=== PATIENT | female | born 1995 | race Two or more races ===

== ENCOUNTER 2024-12-19 12:56 | Observation (INO) | payer OTHER, SELFPAY ==
[2024-12-19] VITALS (7 sets, daily range): BP systolic 90–112; BP diastolic 58–76; PULSE 68–89; RESP 11–20; TEMP 36–36.8; O2SAT 88–100; BMI 33.3
--- NOTE | 2024-12-19 | ECG_ITS ---
Test Reason : cp Blood Pressure : */* mmHG Vent. Rate : 76 BPM Atrial Rate : 76 BPM P-R Int : 160 ms QRS Dur : 94 ms QT Int : 362 ms P-R-T Axes : 34 25 -53 degrees QTcB Int : 407 ms Normal sinus rhythm Nonspecific T wave abnormality Abnormal ECG When compared with ECG of 19-Dec-2024 13:57, No significant change was found Referred By: Lyndsey Song Electronically Signed By: ROSALES HIDALGO MD
--- NOTE | ~2024-12-19 | CT_ITS ---
EXAMINATION: CT CHEST WITH CONTRAST CLINICAL INFORMATION: Fall, hypoxia COMPARISON: None available. TECHNIQUE: Multidetector volumetric CT imaging of the chest was obtained after the administration of 50 mL of Omnipaque 350 intravenous contrast without immediate adverse reactions. Axial MIP volume rendering provided. Sagittal and coronal reformatted images were obtained. This CT examination was performed using dose optimization techniques as appropriate, variously including the following: *Automated exposure control *Adjustment of mA and/or kV according to patient size (this includes techniques or standardized protocols for targeted exams where dose is matched to indication/reason for exam; i.e. extremities or head) *Use of iterative reconstruction technique CLINICAL INFORMATION: Fall, hypoxia COMPARISON: None available. TECHNIQUE: Multiple axial images were obtained through the chest after the administration of 85 mL of Omnipaque 350 intravenous contrast. Extensive vascular post-processing including two-dimensional and three-dimensional reformatted images were created and reviewed on an independent workstation. This CT examination was performed using dose optimization techniques as appropriate, variously including the following: *Automated exposure control *Adjustment of mA and/or kV according to patient size (this includes techniques or standardized protocols for targeted exams where dose is matched to indication/reason for exam; i.e. extremities or head) *Use of iterative reconstruction technique DLP: 2656 mGY*cm FINDINGS: VASCULAR: Pulmonary vessels are mildly prominent. LUNGS AND PLEURA: Mild patchy groundglass densities are diffusely present with linear bands of airspace density in the right apex. There is no pleural thickening or pleural effusion. MEDIASTINUM: Unremarkable Borderline cardiac enlargement is present. CORONARY ARTERY CALCIFICATION: Nonvisualized CHEST WALL/AXILLA: No adenopathy. UPPER ABDOMEN: CT scan abdomen and pelvis CT. BONES: Unremarkable CT/CT chest w IV con IMPRESSION: Suspected mild pulmonary vascular congestion. Electronically signed by: Mando Jackson MD 12/19/2024 04:18 PM EDT
--- NOTE | ~2024-12-19 | CT_ITS ---
EXAMINATION: CT ABDOMEN AND PELVIS WITH CONTRAST CLINICAL INFORMATION: Right lower abdominal pain, fall COMPARISON: None available. TECHNIQUE: Multidetector volumetric images were obtained from the superior aspect of the liver through the pubic symphysis following administration 85 mL of Omnipaque 350 intravenous contrast. Sagittal and coronal reformatted images were obtained on the technologist's workstation. Oral contrast: No This CT examination was performed using dose optimization techniques as appropriate, variously including the following: *Automated exposure control *Adjustment of mA and/or kV according to patient size (this includes techniques or standardized protocols for targeted exams where dose is matched to indication/reason for exam; i.e. extremities or head) *Use of iterative reconstruction technique DLP: 2656 mGY*cm FINDINGS: LUNG BASES: See same-day chest CT LIVER, GALLBLADDER, AND BILIARY TREE: Mild diffuse fatty changes are present. There is mild focal sparing around the gallbladder fossa The gallbladder is unremarkable with no evidence of radiopaque gallstones, gallbladder wall thickening, or obvious pericholecystic inflammatory changes. PANCREAS: Unremarkable. SPLEEN: Unremarkable. ADRENAL GLANDS: Unremarkable. KIDNEYS AND URETERS: 3 x 7 mm focal calcification is present in the mid right kidney. There is no hydronephrosis BLADDER: Unremarkable. GASTROINTESTINAL TRACT: The small and large bowel are unremarkable. The appendix is unremarkable. ABDOMINAL WALL: 3 cm umbilical hernia contains mixed density adipose tissue with fat stranding.. There is a left supraumbilical hernia containing adipose tissue. The hernia sac measured 1 x 3 cm. It extends inferiorly through the dehiscence in the linea alba 6 mm diameter. There is a generator in the right gluteal subcutaneous layer with wire extending through the right S3 neural foramen and right intrapelvic stimulator. LYMPH NODES: Normal. VASCULAR: Unremarkable. PELVIC VISCERA: There is an IUD in the upper uterine canal. Uterus and adnexa are otherwise unremarkable. OSSEOUS STRUCTURES: Unremarkable. CT/CT abdomen pelvis w IV con IMPRESSION: 3 cm umbilical hernia contains mixed density adipose tissue raising question that it is symptomatic. There is also a left supraumbilical hernia containing adipose tissue without fat stranding. 3x7 mm right renal calcification, possibly a stone. Fatty liver IUD. Sacral neurostimulator. Fleischner guidelines were followed. Electronically signed by: Mando Jackson MD 12/19/2024 04:28 PM EDT RP
--- NOTE | ~2024-12-19 | CT_ITS ---
EXAMINATION: CT HEAD WITHOUT CONTRAST CLINICAL INFORMATION: Head trauma, altered mental status COMPARISON: None available. TECHNIQUE: Contiguous axial imaging was performed from the skull base to vertex without intravenous administration of contrast. This CT examination was performed using dose optimization techniques as appropriate, variously including the following: *Automated exposure control *Adjustment of mA and/or kV according to patient size (this includes techniques or standardized protocols for targeted exams where dose is matched to indication/reason for exam; i.e. extremities or head) *Use of iterative reconstruction technique DLP: 2656 mGY*cm FINDINGS: There is no acute ischemic change. There is no intracranial hemorrhage. There is no mass-effect or midline shift. Basal cisterns and ventricles are within normal limits for age/cerebral volume. Orbits are symmetrical and unremarkable. Paranasal sinuses and mastoid air cells are pneumatized. There are no bony abnormalities. CT/CT head/brain wo IV con IMPRESSION: No acute intracranial abnormality. Electronically signed by: Mando Jackson MD 12/19/2024 04:30 PM EDT
--- NOTE | ~2024-12-19 | XR_ITS ---
EXAMINATION: XR KNEE, RIGHT CLINICAL INFORMATION: anterior knee injury COMPARISON: None available. TECHNIQUE: AP and lateral view of the right knee. FINDINGS: Joint spaces are preserved. There is no joint effusion. The Insall-Salvati ratio measured 1.6 consistent with patella bear. XR/XR knee RT 2V IMPRESSION: Patella bear. This is associated with patellofemoral tracking and patellar tendon-lateral femoral condyle friction syndrome. Electronically signed by: Mando Jackson MD 12/19/2024 02:02 PM EDT
--- NOTE | 2024-12-19 13:19 | ECG_ITS ---
Test Reason : FALL Blood Pressure : */* mmHG Vent. Rate : 82 BPM Atrial Rate : 82 BPM P-R Int : 156 ms QRS Dur : 94 ms QT Int : 372 ms P-R-T Axes : 30 21 228 degrees QTcB Int : 434 ms Normal sinus rhythm Nonspecific T wave abnormality Abnormal ECG No previous ECGs available Referred By: Ian Azar Electronically Signed By: ROSALES HIDALGO MD
--- NOTE | 2024-12-19 13:34 | ED.FALL ---
HPI - Fall General Chief Complaint: Fall Stated Complaint: FALL Time Seen by Provider: 12/19/24 13:12 History of Present Illness ED Provider: Ian Azar MD HPI Narrative: 29-year-old female the patient herself offers limited history due to clinical condition.. Paper provided by [facility] with the patient is sent from is also limited saying that she had ?unwitnessed fall ?. The patient herself is sleepy but arousable she does say she ?slipped on water?. She complains of right lower abdominal pain. And injury to the right knee. Related Data Home Medications ?Medication ?Instructions ?Recorded ?Confirmed acetaminophen 325 mg tablet 650 mg PO Q4H PRN Mild Pain (Scale 12/19/24 12/19/24 Score 1-4) albuterol sulfate 90 mcg/actuation 2 puff inhalation Q4H PRN 12/19/24 12/19/24 aerosol inhaler Shortness Of Breath benzocaine 6 mg-menthol 10 mg 1 asher mucous membrane Q2H PRN Sore 12/19/24 12/19/24 lozenges Throat benztropine 1 mg tablet 1 mg PO BID 12/19/24 12/19/24 calcium carbonate 500 mg PO Q4H PRN Heartburn 12/19/24 12/19/24 clonidine HCl 0.1 mg tablet 0.1 mg PO TID PRN Anxiety 12/19/24 12/19/24 dicyclomine 10 mg capsule 10 mg PO TIDAC 12/19/24 12/19/24 divalproex 250 mg tablet,delayed 750 mg PO BID 12/19/24 12/19/24 release docusate sodium 100 mg capsule 100 mg PO BID PRN Constipation 12/19/24 12/19/24 fluticasone furoate 100 1 inh inhalation DAILY 12/19/24 12/19/24 mcg-vilanterol 25 mcg/dose inhalation powder (Breo Ellipta) fluticasone propionate 50 1 spray intranasal DAILY 12/19/24 12/19/24 mcg/actuation nasal spray,suspension gabapentin 300 mg capsule 600 mg PO TID 12/19/24 12/19/24 guaifenesin 600 mg tablet, 1,200 mg PO Q12H PRN Cough 12/19/24 12/19/24 extended release 12 hr (Mucinex) haloperidol 10 mg tablet 10 mg PO BEDTIME 12/19/24 12/19/24 hydroxyzine pamoate 50 mg capsule 50 mg PO Q4H PRN Anxiety 12/19/24 12/19/24 ibuprofen 400 mg tablet 400 mg PO Q8H PRN body ache 12/19/24 12/19/24 lactulose 10 gram/15 mL oral 20 g PO TID 12/19/24 12/19/24 solution loperamide 2 mg capsule 2 mg PO Q6H PRN Loose Stool 12/19/24 12/19/24 loratadine 10 mg tablet 10 mg PO DAILY 12/19/24 12/19/24 melatonin 3 mg tablet 3 mg PO BEDTIME PRN Insomnia 12/19/24 12/19/24 methadone 10 mg/mL oral 140 mg PO DAILY 12/19/24 12/19/24 concentrate (Methadone Intensol) multivitamin 1 tab PO DAILY 12/19/24 12/19/24 nicotine (polacrilex) 2 mg gum 2 mg buccal Q2H PRN Nicotine 12/19/24 12/19/24 Cravings nicotine 21 mg/24 hr daily 1 patch transdermal DAILY PRN 12/19/24 12/19/24 transdermal patch Nicotine Cravings nystatin 100,000 unit/mL oral 5 ml buccal QID 12/19/24 12/19/24 suspension ondansetron 4 mg disintegrating 4 mg PO Q6H PRN Nausea And Vomiting 12/19/24 12/19/24 tablet sennosides 8.6 mg tablet (senna) 17.2 mg PO DAILY PRN Constipation 12/19/24 12/19/24 sofosbuvir 400 mg-velpatasvir 100 1 tab PO DAILY 12/19/24 12/19/24 mg tablet (Epclusa) thiamine HCl (vitamin B1) 100 mg 100 mg PO DAILY 12/19/24 12/19/24 tablet topiramate 100 mg tablet 100 mg PO DAILY 12/19/24 12/19/24 trazodone 50 mg tablet 50 mg PO BEDTIME 12/19/24 12/19/24 Allergies Allergy/AdvReac Type Severity Reaction Status Date / Time clindamycin Allergy Unknown Verified 12/19/24 13:17 pineapple AdvReac Unknown Verified 12/19/24 13:17 [facility] Social History Social History Smoked in Last 30 Days: No Use of substances other than those prescribed or required for medical reasons: No Advance Directives: No Advance Directives Information Provided: No Patient : No Physical Exam Vital Signs: Vital Signs: Last Vital Signs Temp 96.8 F 12/19/24 16:17 Pulse 78 12/19/24 18:46 Resp 18 12/19/24 18:46 BP 107/76 12/19/24 18:46 Pulse Ox 98 12/19/24 18:46 O2 Del Method Nasal Cannula 12/19/24 18:46 O2 Flow Rate 2 12/19/24 18:46 BMI result Body Mass Index 33.3 Const: Other: Initial evaluation: EXAM: Gen: Sleepy, easily arousable. Pupils 4-5 mm and symmetric, reactive. No obvious signs of trauma. Good skin color the nurse just tells me that her color returned to her face after brief pallor/perioral cyanosis. Head: Atraumatic Eyes: Anicteric, Normal conjunctiva. ENT: Moist mucosa, no pallor. ? Neck: Supple. Skin: ?No observable rash or bruising on exposed or examined skin Respiratory: Breathing comfortably, No distress.Clear to auscultation bilaterally, symmetric chest expansion, No wheeze, rales, ronchi. Cardiovascular: Regular rate and rhythm. No murmurs or rub. Well perfused periphery, warm extremities. No edema. ? Abdominal: Moderate right lower abdominal tenderness. Mild tenderness diffusely and obese. Soft, no objective distension. No palpable masses or obvious organomegaly. ?No guarding, no rebound tenderness or other peritoneal findings. : No flank tenderness. Neuro: Alert. Gross movement of all extremities intact. ?No convulsive activity. Normal tone. Psych: Sleepy but arousable. Perhaps sedated appearing no clear obvious toxidrome MSK: No grossly visible deformity. Left anterior superior chest wall slightly tender no ecchymosis or step-off. Vital signs: See flowsheet Medications Administered Generic Name Dose Route Start Last Admin Trade Name Freq PRN Reason Stop Dose Admin Enoxaparin Sodium 40 mg 12/19/24 19:00 12/19/24 19:25 Enoxaparin Sodium 40 Mg/0.4 Ml Syringe SUBCUT Not Given Q24H REUBEN Discontinued Medications Generic Name Dose Route Start Last Admin Trade Name Freq PRN Reason Stop Dose Admin Albuterol Sulfate 2.5 mg 12/19/24 13:30 12/19/24 14:20 Albuterol Sulfate (0.083%) 2.5 Mg/3 Ml Vial.Neb INHALE 12/19/24 13:31 2.5 mg ONCE ONE Administration Iohexol 100 ml 12/19/24 15:34 12/19/24 15:34 Iohexol 350 Mg/Ml 100 Ml Infus..Btl IV 12/19/24 15:35 85 ml ONCE ONE Administration Lactulose 20 gm 12/19/24 14:09 12/19/24 14:38 Lactulose 20 Gm/30 Ml Solution PO 12/19/24 14:10 20 gm ONCE ONE Administration Medical Decision Making Medical Decision Making MDM Narrative: 29-year-old female with recent admission at [facility] she had a fall today poorly described or characterize based on the written history from the facility and the patient's history being limited herself due to her clinical condition. She did have some abdominal tenderness and was intermittently hypoxic. Although we felt this was due to possibly polypharmacy over-sedation or obesity hypoventilation/asthma CT chest abdomen pelvis was performed to exclude torso or abdominal injuries. CT revealed possibly mild pulmonary edema. She was maintained on 2-4 L nasal cannula this is a new oxygen requirement for her. She is very sleepy. Unclear whether all of these medications are new I was unable to receive a call back from Psychiatry or medical team at [facility] to fully elaborate when her hepatic encephalopathy was diagnosed or if she has been treated and/or how long or if these medications are all new. Patient is unsafe to be discharged back to a psychiatric primary facility given the hypoxia. Pulmonary edema seen on CT is of unclear significance. There was no fever, nor leukocytosis I doubt pneumonia or infectious etiology. A Differential Diagnosis Differential Diagnoses: The differential diagnosis associated with the presentation includes Polypharmacy, metabolic or toxic encephalopathy, pulmonary edema, less likely pneumonia, no risks for PE/DVT or clear clinical signs of DVT doubt PE as the etiology. Consult Healthcare Provider Management of the patient was discussed with: Hospitalist Lab Data 12/19/24 13:27 12/19/24 13:27 Labs: Lab Results 12/19/24 Range/Units 13:27 WBC 4.9 (4.8-10.8) X10*3/uL RBC 3.73 L (4.20-5.50) X10*6/uL Hgb 11.1 L (12.0-16.0) g/dl Hct 33.5 L (37.0-47.0) % MCV 89.8 (80.0-98.0) fL MCH 29.8 (27.0-33.0) pg MCHC 33.1 (31.0-35.0) g/dl RDW 15.7 (11.0-16.0) % Plt Count 98 L (160-400) X10*3/uL MPV 10.4 (9.4-12.3) fL Immature Gran % (Auto) 0.2 (0.0-0.4) % Neut % (Auto) 45.2 (45-73) % Lymph % (Auto) 46.2 H (20-40) % [place] % (Auto) 8.2 (2-11) % Eos % (Auto) 0.0 (0-4) % Baso % (Auto) 0.2 (0-2) % Lymph # (Auto) 2.2 (1.2-4.9) X10*3/uL [place] # (Auto) 0.4 (0.1-1.2) X10*3/uL Eos # (Auto) 0.0 (0.0-0.4) X10*3/uL Baso # (Auto) 0.0 (0.0-0.2) X10*3/uL Abs Immat Gran (auto) 0.01 (0.00-0.03) X10*3/uL Absolute Neuts (auto) 2.2 (2.0-8.3) x10*3/uL Absolute Nucleated RBC 0.000 (0.0-0.012) X10*3/uL Nucleated RBC % (auto) 0.0 (0.0-0.2) /100WBC Smear Tech's Comments VERIFIED Sodium 139 (135-145) mmol/L Potassium 4.4 (3.3-5.1) mmol/L Chloride 104 (96-108) mmol/L Carbon Dioxide 27 (22-29) mmol/L Anion Gap 12 (12-20) BUN 23 H (9-16) mg/dL Creatinine 1.00 (0.5-1.4) mg/dL Estim Creat Clear Calc 94.0 Estimated GFR > 60 Random Glucose 107 (60-115) mg/dL Calcium 8.9 (8.4-10.2) mg/dL Total Bilirubin 0.2 (0.0-1.0) mg/dL Direct Bilirubin < 0.2 (0.0-0.5) mg/dL AST 40 H (5-31) U/L ALT 19 (0-31) U/L Alkaline Phosphatase 87 (39-117) U/L Ammonia 75 H (13-55) umol/L Total Protein 7.3 (6.5-8.0) g/dL Albumin 4.1 (3.5-5.0) g/dL Beta HCG, Quant < 2 mIU/mL Independent Interpretation I performed an independent interpretation of an: EKG (Sinus rhythm rate 76 QTC 407. No acute ischemic changes. ) Radiology Impression Discussion of test interpretation with radiology: I have reviewed the radiologist's reading. Independent Historian Clinical information obtained from an independent historian. History obtained from or confirmed by: Other (Attempted additional history but none provided by [facility]) External Record Review External record reviewed: Inpatient record (I did read the provided medication list, as well as the psychiatric evaluation at [facility] provided to me) Chronic Conditions Patient?s care impacted by: Other (Behavioral health disorder) Discharge Plan Discharge Clinical Impression: Hypoxia Patient Disposition: Admitted As Inpatient
[2024-12-19 13:38] LABS: Hematocrit 33.5 % (37.0-47.0); Hemoglobin 11.1 g/dl (12.0-16.0); Imm Gran Abs Auto 0.01 X10*3/uL (0.00-0.03); Imm Gran Pct Auto 0.2 % (0.0-0.4); Lymphocytes Absolute Auto 2.2 X10*3/uL (1.2-4.9); Mean Corpuscular HGB Conc 33.1 g/dl (31.0-35.0); Mean Corpuscular Hemoglobin 29.8 pg (27.0-33.0); Mean Corpuscular Volume 89.8 fL (80.0-98.0); NRBC Abs Auto 0.000 X10*3/uL (0.0-0.012); NRBC Pct Auto 0.0 /100WBC (0.0-0.2); Red Blood Count 3.73 X10*6/uL (4.20-5.50); White Blood Count 4.9 X10*3/uL (4.8-10.8)
[2024-12-19 13:46] LABS: Ammonia 75 umol/L (13-55)
--- NOTE | 2024-12-19 13:49 | PC.NURSE ---
patient presents to ED via ems from [facility] in on [address]. patient is noted to be somnolent, requires frequent noxious stimuli to wake back up. patient states she slipped on water at [facility], fell hit back of her head, injured her right knee and foot. patient states she has severe right flank/abd pain, abd noted to be round and doft. patient desat down to 79% on room air, placed on 4lNC now satting 92%. when patient asked why she is so tired she stated she has high ammonia levels. patient is oriented x3. IV placed in left hand. ED provider notified of patient current state. sitter at bedside 1:1
[2024-12-19 13:54] LABS: Alanine Aminotransferase 19 U/L (0-31); Albumin Level 4.1 g/dL (3.5-5.0); Alkaline Phosphatase 87 U/L (39-117); Anion Gap 12 (12-20); Aspartate Amino Transferase 40 U/L (5-31); Blood Urea Nitrogen 23 mg/dL (9-16); Calcium 8.9 mg/dL (8.4-10.2); Carbon Dioxide 27 mmol/L (22-29); Chloride 104 mmol/L (96-108); Creatinine Clr Calc Pharmacy 94.0; Estimated Glomerular Filt Rate > 60; Potassium 4.4 mmol/L (3.3-5.1); Sodium 139 mmol/L (135-145); Total Protein 7.3 g/dL (6.5-8.0)
[2024-12-19 13:58] LABS: MANUAL DIFF FLAG SCAN; Platelet Count 98 X10*3/uL (160-400)
[2024-12-19] MEDS: Albuterol Sulfate (0.083%) 2.5 MG/3 ML VIAL.NEB INHALE (14:20)
--- OUTSIDE RECORDS SUMMARY | 2024-12-19 14:40 | XMS_ITS | Encounter Summary ---
Author Organization [facility] Address [address] [place] [address] Care Team Providers Care Hvac Service Tech Name Role Phone Ozzy Schmidt NP Primary Care Provider [phone] Encounter Details Date Type Department Care Team (Late st Contact Info) Description 12/13/2024 Lab Requisition [facility] Lab [address] [place] [address] [facility] [address] [address], [place] [phone] Other watermelon inspector (current) drug therapy Social History Tobacco Use Types Packs/Day Years Used Date Smoking Tobacco: Never Assessed Comments Unknown Sex and Gender Information Value Date Recorded Sex Assigned at Not on file Legal Sex Female 9:36 AM EDT Gender Identity Not on file Sexual Orientation Not on file documented as of this encounter Plan of Treatment Not on file documented as of this encounter Procedures Procedure Name Priority Date/Time Associated Diagnosis Comments CBC WITH AUTO DIFFERENTIAL Routine 12/13/2024 7:00 AM EDT Other fdc (current) drug therapy CBC AND DIFFERENTIAL Routine 12/13/2024 7:00 AM EDT Other watermelon inspector (current) drug therapy documented in this encounter Results * (ABNORMAL) CBC auto differential (12/13/2024 7:00 AM EDT) WBC 4.7(L) 4.8 - 10.8 K/[facility] LAB HEMETOLOGY METHOD 12/13/2024 9:45 AM EDT [facility] RBC 3.60(L) 3.80 - 4.80 M/[facility] LAB HEMETOLOGY METHOD 12/13/2024 9:45 AM [facility] Hemoglobin 10.6(L) 11.5 - 16.0 g/dL LAB HEMETOLOGY METHOD 12/13/2024 9:45 AM [facility] LAB Hematocrit 34.2(L) 35.0 - 47.0 % LAB HEMETOLOGY METHOD 12/13/2024 9:45 AM [facility] LAB MCV 94.2 79.0 - 98.0 FL LAB HEMETOLOGY METHOD 12/13/2024 9:45 AM [facility] LAB MCH 29.2 27.0 - 32.0 pcg LAB HEMETOLOGY METHOD 12/13/2024 9:45 AM [facility] LAB MCHC 31.0(L) 32.0 - 37.0 g/dL LAB HEMETOLOGY METHOD 12/13/2024 9:45 AM [facility] LAB RDW 16.3(H) 11.0 - 15.0 % LAB HEMETOLOGY METHOD 12/13/2024 9:45 AM [facility] LAB Platelets 105(L) 130 - 400 K/mcL LAB HEMETOLOGY METHOD 12/13/2024 9:45 AM [facility] LAB MPV 11.8(H) 7.0 - 11.0 FL LAB HEMETOLOGY METHOD 12/13/2024 9:45 AM [facility] LAB NRBC 0.0 <1.0 % LAB HEMETOLOGY METHOD 12/13/2024 9:45 AM [facility] LAB NRBC Absolute 0.00 <0.10 K/mcL LAB HEMETOLOGY METHOD 12/13/2024 9:45 AM [facility] LAB Neutrophils Relative 28.9 % LAB HEMETOLOGY METHOD 12/13/2024 9:45 AM [facility] LAB Lymphocytes Relative 59.5 % LAB HEMETOLOGY METHOD 12/13/2024 9:45 AM [facility] Monocytes Relative 11.0 % LAB HEMETOLOGY METHOD 12/13/2024 9:45 AM [facility] Eosinophils Relative 0.0 % LAB HEMETOLOGY METHOD 12/13/2024 9:45 AM [facility] Basophils Relative 0.4 % LAB HEMETOLOGY METHOD 12/13/2024 9:45 AM [facility] Immature Granulocytes Relative 0.2 % LAB HEMETOLOGY METHOD 12/13/2024 9:45 AM [facility] LAB Neutrophils Absolute 1.37(L) 1.50 - 7.00 K/mcL LAB HEMETOLOGY METHOD 12/13/2024 9:45 AM [facility] LAB Lymphocytes Absolute 2.82 1.00 - 5.00 K/mcL LAB HEMETOLOGY METHOD 12/13/2024 9:45 AM [facility] Monocytes Absolute 0.52 0.20 - 1.00 K/mcL LAB HEMETOLOGY METHOD 12/13/2024 9:45 AM [facility] Eosinophils Absolute 0.00 0.00 - 0.50 K/mcL LAB HEMETOLOGY METHOD 12/13/2024 9:45 AM [facility] Basophils Absolute 0.02 0.00 - 0.20 K/mcL LAB HEMETOLOGY METHOD 12/13/2024 9:45 AM [facility] Immature Granulocytes Absolute 0.01 0.00 - 0.03 K/mcL LAB HEMETOLOGY METHOD 12/13/2024 9:45 AM [facility] Blood Venous blood specimen / Unknown Venipuncture / Unknown 12/13/2024 7:00 AM EDT 12/13/2024 9:12 AM EDT [facility] LAB BLOOD ORDERABLES Final Resul t MEAGAN RODRIGUEZ [place] ([facility]) HOSPITAL LAB [address] [place] [address], documented in this encounter Visit Diagnoses Diagnosis Other fdc (current) drug therapy documented in this encounter Care Teams Hvac Service Tech Relationship Specialty Start Date End Date Ozzy Schmidt NP [address] [place] [id number] PCP - General 12/12/24 documented as of this encounter
[2024-12-19] MEDS: iohexoL 350 MG/ML 100 ML INFUS..BTL IV (15:34)
--- NOTE | 2024-12-19 16:44 | PC.NURSE ---
patient remains obtunded, only responds to noxious stimuli then falls back asleep. on 4lNC. sitter at bedside
--- NOTE | 2024-12-19 17:31 | PM.IMHP ---
History of Present Illness Date of Service: 12/19/24 Attending physician on admission: [facility] Chief Complaint: Fall at facility Pt is a 29-year-old female with a PMH significant for?asthma, hepatitis-C currently undergoing treatment, PTSD, GERD, and schizoaffective bipolar type who presents to the ED from [facility] after fall at the facility with head strike. Pt apparently was walking when she slipped on water, falling to the floor and hitting the back of her head. Pt was noted to be somnolent and difficult to arouse in triage, constantly falling back asleep. Workup overall was significant for elevated ammonia of 75 and pt noted to be desatting into the low 80s on RA. Attempted to see pt twice where she was noted to be nearly obtunded, unable to arouse with painful stimuli for more than a slight fluttering of her eyes. Upon 3rd attempt at seen pt, found her to be awake and alert, conversant, and mentating appropriately. Pt states has been having some medication changes at the facility, including changes to her Haldol dosing regimen. Reports some chronic lower extremity pain, but nothing acute. Denies any significant SOB or difficulty breathing. No cough. Denies chest pain/pressure, palpitations. No nausea, vomiting, abdominal pain. Reports she around 1 more month In the ED pt with soft BP as low as 90/58, desatting into 80s on RA. Labs were significant for H&H 11.1/33.5, platelets 98, AST 40, and ammonia 75. No leukocytosis. No significant electrolyte abnormalities. CT of head negative. CTA of chest with suspected mild pulmonary vascular congestion. CTA of abdomen showing umbilical hernia containing mixed density adipose tissue left supraumbilical hernia, and 3 x 7 mm right renal calcification. Right knee x-ray negative for acute fracture. EKG demonstrate of hepatitis-C treatment. d normal sinus rhythm without evidence of significant ST elevations or depressions. Pt was treated in the ED with lactulose 20 g p.o. and albuterol. Pt is admitted to the hospital under observation for lethargy and hypoxia likely secondary to polypharmacy. Review of Systems Review of Systems: Negative except for that which is stated in the HPI. [facility] Social History Patient Tobacco Use Status: Never used Tobacco Smoked in Last 30 Days: No Use of substances other than those prescribed or required for medical reasons: No Advance Directives: No Advance Directives Information Provided: No Do you have a plan to hurt others: No Plan Nutrition Risks: No Nutritional Risk Patient : No Meds Allergies Allergy/AdvReac Type Severity Reaction Status Date / Time clindamycin Allergy Unknown Verified 12/19/24 13:17 pineapple AdvReac Unknown Verified 12/19/24 13:17 Home Medications ?Medication ?Instructions ?Recorded ?Confirmed ?Last Taken ?Type acetaminophen 325 mg tablet 650 mg PO Q4H PRN Mild Pain (Scale 12/19/24 12/19/24 Unknown History Score 1-4) albuterol sulfate 90 mcg/actuation 2 puff inhalation Q4H PRN 12/19/24 12/19/24 Unknown History aerosol inhaler Shortness Of Breath benzocaine 6 mg-menthol 10 mg 1 asher mucous membrane Q2H PRN Sore 12/19/24 12/19/24 Unknown History lozenges Throat benztropine 1 mg tablet 1 mg PO BID 12/19/24 12/19/24 Unknown History calcium carbonate 500 mg PO Q4H PRN Heartburn 12/19/24 12/19/24 Unknown History clonidine HCl 0.1 mg tablet 0.1 mg PO TID PRN Anxiety 12/19/24 12/19/24 Unknown History dicyclomine 10 mg capsule 10 mg PO TIDAC 12/19/24 12/19/24 Unknown History divalproex 250 mg tablet,delayed 750 mg PO BID 12/19/24 12/19/24 Unknown History release docusate sodium 100 mg capsule 100 mg PO BID PRN Constipation 12/19/24 12/19/24 Unknown History fluticasone furoate 100 1 inh inhalation DAILY 12/19/24 12/19/24 Unknown History mcg-vilanterol 25 mcg/dose inhalation powder (Breo Ellipta) fluticasone propionate 50 1 spray intranasal DAILY 12/19/24 12/19/24 Unknown History mcg/actuation nasal spray,suspension gabapentin 300 mg capsule 600 mg PO TID 12/19/24 12/19/24 Unknown History guaifenesin 600 mg tablet, 1,200 mg PO Q12H PRN Cough 12/19/24 12/19/24 Unknown History extended release 12 hr (Mucinex) haloperidol 10 mg tablet 10 mg PO BEDTIME 12/19/24 12/19/24 Unknown History hydroxyzine pamoate 50 mg capsule 50 mg PO Q4H PRN Anxiety 12/19/24 12/19/24 Unknown History ibuprofen 400 mg tablet 400 mg PO Q8H PRN body ache 12/19/24 12/19/24 Unknown History lactulose 10 gram/15 mL oral 20 g PO TID 12/19/24 12/19/24 Unknown History solution loperamide 2 mg capsule 2 mg PO Q6H PRN Loose Stool 12/19/24 12/19/24 Unknown History loratadine 10 mg tablet 10 mg PO DAILY 12/19/24 12/19/24 Unknown History melatonin 3 mg tablet 3 mg PO BEDTIME PRN Insomnia 12/19/24 12/19/24 Unknown History methadone 10 mg/mL oral 140 mg PO DAILY 12/19/24 12/19/24 12/19/24 08:30 History concentrate (Methadone Intensol) multivitamin 1 tab PO DAILY 12/19/24 12/19/24 Unknown History nicotine (polacrilex) 2 mg gum 2 mg buccal Q2H PRN Nicotine 12/19/24 12/19/24 Unknown History Cravings nicotine 21 mg/24 hr daily 1 patch transdermal DAILY PRN 12/19/24 12/19/24 Unknown History transdermal patch Nicotine Cravings nystatin 100,000 unit/mL oral 5 ml buccal QID 12/19/24 12/19/24 Unknown History suspension ondansetron 4 mg disintegrating 4 mg PO Q6H PRN Nausea And Vomiting 12/19/24 12/19/24 Unknown History tablet sennosides 8.6 mg tablet (senna) 17.2 mg PO DAILY PRN Constipation 12/19/24 12/19/24 Unknown History sofosbuvir 400 mg-velpatasvir 100 1 tab PO DAILY 12/19/24 12/19/24 Unknown History mg tablet (Epclusa) thiamine HCl (vitamin B1) 100 mg 100 mg PO DAILY 12/19/24 12/19/24 Unknown History tablet topiramate 100 mg tablet 100 mg PO DAILY 12/19/24 12/19/24 Unknown History trazodone 50 mg tablet 50 mg PO BEDTIME 12/19/24 12/19/24 Unknown History Physical Exam Vital Signs and Narrative: Vital Signs: Last Vital Signs Temp 96.8 F 12/19/24 16:17 Pulse 74 12/19/24 16:17 Resp 12 12/19/24 16:17 BP 90/58 L 12/19/24 16:17 Pulse Ox 94 12/19/24 16:17 O2 Del Method Nasal Cannula 12/19/24 16:17 O2 Flow Rate 4 12/19/24 16:17 BMI result Body Mass Index 33.3 General: AOx3, no acute distress Resp: CTA bilaterally. No wheezing, rhonchi, or rales noted CVS: S1, S2, RRR GI: +BS, NT, no distention Skin: Warm, dry Neuro: Cranial nerves II-XII grossly intact bilaterally. Motor grossly intact bilaterally Extremities: No edema Psych: Appropriate affect Results Labs 12/19/24 13:27 12/20/24 03:41 Labs: Laboratory Results - last 24 hr 12/19/24 13:27 MCV 89.8 MCH 29.8 MCHC 33.1 RDW 15.7 Plt Count 98 L MPV 10.4 Immature Gran % (Auto) 0.2 Neut % (Auto) 45.2 Lymph % (Auto) 46.2 H [place] % (Auto) 8.2 Eos % (Auto) 0.0 Baso % (Auto) 0.2 Lymph # (Auto) 2.2 [place] # (Auto) 0.4 Eos # (Auto) 0.0 Baso # (Auto) 0.0 Abs Immat Gran (auto) 0.01 Absolute Neuts (auto) 2.2 Absolute Nucleated RBC 0.000 Nucleated RBC % (auto) 0.0 Smear Tech's Comments VERIFIED Anion Gap 12 Estim Creat Clear Calc 94.0 Estimated GFR > 60 Random Glucose 107 Calcium 8.9 Total Bilirubin 0.2 Direct Bilirubin < 0.2 AST 40 H ALT 19 Alkaline Phosphatase 87 Ammonia 75 H Total Protein 7.3 Albumin 4.1 Beta HCG, Quant < 2 Imaging Radiologist's Impressions: Impressions Knee X-Ray 12/19/24 12:47 IMPRESSION: Patella bear. This is associated with patellofemoral tracking and patellar tendon-lateral femoral condyle friction syndrome. Electronically signed by: Mando Jackson MD 12/19/2024 02:02 PM EDT RP Abdomen/Pelvis CT 12/19/24 14:28 IMPRESSION: 3 cm umbilical hernia contains mixed density adipose tissue raising question that it is symptomatic. There is also a left supraumbilical hernia containing adipose tissue without fat stranding. 3x7 mm right renal calcification, possibly a stone. Fatty liver IUD. Sacral neurostimulator. Fleischner guidelines were followed. Electronically signed by: Mando Jackson MD 12/19/2024 04:28 PM EDT RP Chest CT 12/19/24 14:28 IMPRESSION: Suspected mild pulmonary vascular congestion. Electronically signed by: Mando Jackson MD 12/19/2024 04:18 PM EDT RP Head CT 12/19/24 14:28 IMPRESSION: No acute intracranial abnormality. Electronically signed by: Mando Jackson MD 12/19/2024 04:30 PM EDT RP Assessment and Plan (1) Hypoxia: Status: Acute Plan Pt is a 29-year-old female with a PMH significant for?asthma, hepatitis-C currently undergoing treatment, PTSD, GERD, and schizoaffective bipolar type who presents to the ED from [facility] after fall at the facility with head strike. Pt is admitted to the hospital under observation for lethargy and hypoxia likely secondary to polypharmacy. Somnolence, hypoxia Pt noted to be somnolent first 4-5 hours of hospital stay, at times obtunded and unable to arouse even with painful stimuli Also noted at x2 desat to lower 80s on RA Currently awake, alert, and oriented x4 Imaging of chest showing possible mild pulmonary edema; no focal consolidations or concern for pneumonia Likely secondary to polypharmacy; pt on many sedative medications (Haldol, valproic acid, methadone) and recent medications at facility No indication at this time for antibiotics Hold sedative medication at this time Titrate supplemental O2 >92, wean as tolerated Pt should have medication adjustment at [facility] Fall at facility Reports slipped on water Polypharmacy likely contributory Medication adjustment at [facility] Hyperammonemia Ammonia 75 at time of presentation Pt received lactulose 20 g in the ED Likely secondary to medication: Pt on Haldol and valproic acid Repeat ammonia in the morning Asthma Not in acute exacerbation Continue home inhalers; Anthony p.r.n. Mood disorder Sedating medications will be held at this time due to somnolence Full Code Attending:?Dr. Patiño DVT Prophylaxis: Lovenox Pt will be admitted to the hospital under observation for treatment and further evaluation of somnolence and hypoxia likely secondary to polypharmacy. Quality Stroke Does the patient have a stroke diagnosis?: No VTE Prior VTE?: No VTE Risk Level:: Medical - moderate - high VTE Device Contraindication: Treatment Not Indicated VTE Drug Contraindication: N/A - Med Ordered
[2024-12-19 19:12] LABS: Cannabinoid Screen Urine Not Detected (Not Detect)
--- NOTE | 2024-12-19 19:40 | MHC.EDTECH ---
Patient asked for a sandwich and a drink
--- NOTE | 2024-12-19 20:02 | PHA.MEDREC ---
Pharmacy Consult ? Medication Reconciliation Pharmacy has completed the medication reconciliation. med list obtained from [email or web address]
--- NOTE | 2024-12-19 20:02 | HE.PHANOTE ---
methadone verified last dose 140 mg miravista 12/19/24 830am
[2024-12-20] VITALS (8 sets, daily range): BP systolic 87–99; BP diastolic 50–67; PULSE 54–87; RESP 14–18; TEMP 35.9–36.8; O2SAT 94–100; BMI 37.7
[2024-12-20 06:00] LABS: Alanine Aminotransferase 15 U/L (0-31); Albumin Level 3.5 g/dL (3.5-5.0); Alkaline Phosphatase 78 U/L (39-117); Anion Gap 13 (12-20); Aspartate Amino Transferase 31 U/L (5-31); Blood Urea Nitrogen 21 mg/dL (9-16); Calcium 8.5 mg/dL (8.4-10.2); Carbon Dioxide 25 mmol/L (22-29); Chloride 104 mmol/L (96-108); Creatinine Clr Calc Pharmacy 106.8; Estimated Glomerular Filt Rate > 60; Potassium 4.1 mmol/L (3.3-5.1); Sodium 138 mmol/L (135-145); Total Protein 6.5 g/dL (6.5-8.0)
[2024-12-20 08:57] LABS: Ammonia 98 umol/L (13-55)
--- NOTE | 2024-12-20 09:19 | HO.PM.IMPN ---
Subjective Subjective Date of Service: 12/21/24 Interval History: f/u on hypoxia, high ammonia and unresponsiveness She is back to her baseline today, yet ammonia level is high She is still on oxygen which is been titrated off, patient thinks they increased some of her medication and causing the excessive sedation Physical Exam Vital Signs: Vital Signs: Last Vital Signs Temp 97.4 F 12/20/24 05:18 Pulse 66 12/20/24 05:18 Resp 18 12/20/24 05:18 BP 99/64 12/20/24 05:18 Pulse Ox 94 12/20/24 05:18 O2 Del Method Nasal Cannula 12/20/24 05:18 O2 Flow Rate 2 12/20/24 05:18 BMI result Body Mass Index 33.3 Const: Other: General: AOx3, no acute distress Resp: CTA bilaterally. No wheezing, rhonchi, or rales noted CVS: S1, S2, RRR GI: +BS, NT, no distention Skin: Warm, dry Neuro: Cranial nerves II-XII grossly intact bilaterally. Motor grossly intact bilaterally Extremities: No edema Psych: Appropriate affect Objective Data Active Medications Acetaminophen (Acetaminophen 325 Mg Tablet) 650 mg PO Q6H PRN PRN Reason: Pain, Mild 1-3,fever,headache Last Admin: 12/19/24 23:50 Dose: 650 mg Documented By: ASUNCION Albuterol Sulfate (Albuterol Sulfate 90 Mcg 8 Gm Inhaler) 2 puff INHALE Q4H PRN PRN Reason: Shortness of Breath Albuterol/Ipratropium (Albuterol/Iprat 2.5/0.5mg 3 Ml Ampul.Neb) 3 ml INHALE RQ4H WHILE AWAKE PRN PRN Reason: Shortness of Breath/Wheezing Benzocaine (Throat Lozenge, Medicated Lozenge) 1 lozenge MUCOUS MEM Q2H PRN PRN Reason: Sore Throat Benztropine Mesylate (Benztropine Mesylate 1 Mg Tablet) 1 mg PO BID REUBEN Calcium Carbonate (Calcium Carbonate 750 Mg Tab.Chew) 750 mg PO Q4H PRN PRN Reason: Heartburn Clonidine HCl (Clonidine Hcl 0.1 Mg Tablet) 0.1 mg PO TID PRN; Protocol PRN Reason: Anxiety Dicyclomine HCl (Dicyclomine Hcl 10 Mg Capsule) 10 mg PO TIDAC [facility]EN Docusate Sodium (Docusate Sodium 100 Mg Capsule) 100 mg PO BID PRN PRN Reason: Constipation Enoxaparin Sodium (Enoxaparin Sodium 40 Mg/0.4 Ml Syringe) 40 mg SUBCUT Q24H [facility] Last Admin: 12/19/24 19:25 Dose: Not Given Documented By: RULA Non-Admin Reason: Patient Refused Fluticasone Propionate (Fluticasone Propionate Nasal 16 Gm [place]) 1 spray NOSTRIL-B DAILY [facility] Fluticasone/Vilanterol (Fluticasone/Vilanterol 100/25 Blst.W.Dev) 1 puff INHALE RDAILY [facility] Guaifenesin (Guaifenesin La 600 Mg Tab.Er.12h) 1,200 mg PO Q12H PRN PRN Reason: Cough Hydroxyzine HCl (Hydroxyzine Hcl 50 Mg Tablet) 50 mg PO Q4H PRN PRN Reason: Anxiety Lactulose (Lactulose 20 Gm/30 Ml Solution) 20 gm PO TID [facility] Loperamide HCl (Loperamide Hcl 2 Mg Capsule) 2 mg PO Q6H PRN PRN Reason: Loose Stool Magnesium Hydroxide (Milk Of Magnesia 30 Ml Oral.Susp) 30 ml PO DAILY PRN PRN Reason: Constipation Melatonin (Melatonin 3 Mg Tablet) 6 mg PO BEDTIME PRN PRN Reason: Insomnia Last Admin: 12/19/24 23:51 Dose: 6 mg Documented By: ASUNCION Methadone HCl (Methadone Hcl 20 Mg/2 Ml Oral.Conc) 140 mg PO DAILY [facility] Multivitamins/Vitamin C (Multivitamin Tablet) 1 tab PO DAILY [facility] Nicotine (Nicotine 21 Mg Patch.Td24) 21 mg TRANSDERMA DAILY PRN PRN Reason: Nicotine Cravings Nicotine Polacrilex (Nicotine Polacrilex 2 Mg Gum) 2 mg BUCCAL Q2H PRN PRN Reason: Nicotine Cravings Non-Formulary Medication (Sofosbuvir-Velpatasvir [Epclusa]) 1 tab PO DAILY [facility] Non-Formulary Medication (Calcium Carbonate) 500 mg PO Q4H PRN PRN Reason: Heartburn Nystatin (Nystatin Oral Susp 500,000 Unit/5 Ml Oral.Susp) 500,000 unit BUCCAL QID [facility]; Protocol Ondansetron HCl (Ondansetron Hcl 4 Mg/2 Ml Vial) 4 mg IVPUSH Q8H PRN PRN Reason: Nausea and Vomiting Ondansetron HCl (Ondansetron Odt 4 Mg Tab.Rapdis) 4 mg TRANSLINGU Q6H PRN PRN Reason: Nausea and Vomiting Senna (Sennosides 8.6 Mg Tablet) 17.2 mg PO DAILY PRN PRN Reason: Constipation Sodium Chloride (0.9 % Sodium Chloride Flush 3 Ml Syringe) 3 ml IVFLUSH QSHIFT [facility] Last Admin: 12/20/24 00:00 Dose: 3 ml Documented By: ASUNCION Topiramate (Topiramate 100 Mg Tablet) 100 mg PO DAILY [facility] Labs 12/19/24 13:27 12/20/24 03:41 Labs: Laboratory Results - last 24 hr 12/19/24 12/19/24 12/20/24 13:27 18:49 03:41 MCV 89.8 MCH 29.8 MCHC 33.1 RDW 15.7 Plt Count 98 L MPV 10.4 Immature Gran % (Auto) 0.2 Neut % (Auto) 45.2 Lymph % (Auto) 46.2 H [place] % (Auto) 8.2 Eos % (Auto) 0.0 Baso % (Auto) 0.2 Lymph # (Auto) 2.2 [place] # (Auto) 0.4 Eos # (Auto) 0.0 Baso # (Auto) 0.0 Abs Immat Gran (auto) 0.01 Absolute Neuts (auto) 2.2 Absolute Nucleated RBC 0.000 Nucleated RBC % (auto) 0.0 Smear Tech's Comments VERIFIED Anion Gap 12 13 Estim Creat Clear Calc 94.0 106.8 Estimated GFR > 60 > 60 Random Glucose 107 67 Calcium 8.9 8.5 Total Bilirubin 0.2 0.3 Direct Bilirubin < 0.2 AST 40 H 31 ALT 19 15 Alkaline Phosphatase 87 78 Ammonia 75 H Total Protein 7.3 6.5 Albumin 4.1 3.5 Beta HCG, Quant < 2 Urine Opiates Screen Not Detected Ur Buprenorphine Scrn Not Detected Ur Oxycodone Screen Not Detected Urine Methadone Screen Positive H Urine Fentanyl Screen Not Detected Ur Barbiturates Screen Not Detected Ur Phencyclidine Scrn Not Detected Ur Amphetamines Screen Not Detected U Benzodiazepines Scrn Not Detected Urine Cocaine Screen Not Detected U Marijuana (THC) Screen Not Detected 12/20/24 08:43 MCV MCH MCHC RDW Plt Count MPV Immature Gran % (Auto) Neut % (Auto) Lymph % (Auto) [place] % (Auto) Eos % (Auto) Baso % (Auto) Lymph # (Auto) [place] # (Auto) Eos # (Auto) Baso # (Auto) Abs Immat Gran (auto) Absolute Neuts (auto) Absolute Nucleated RBC Nucleated RBC % (auto) Smear Tech's Comments Anion Gap Estim Creat Clear Calc Estimated GFR Random Glucose Calcium Total Bilirubin Direct Bilirubin AST ALT Alkaline Phosphatase Ammonia 98 H Total Protein Albumin Beta HCG, Quant Urine Opiates Screen Ur Buprenorphine Scrn Ur Oxycodone Screen Urine Methadone Screen Urine Fentanyl Screen Ur Barbiturates Screen Ur Phencyclidine Scrn Ur Amphetamines Screen U Benzodiazepines Scrn Urine Cocaine Screen U Marijuana (THC) Screen Assessment and Plan (1) Polypharmacy: Status: Acute (2) Hypoxia: Status: Acute (3) Hyperammonemia: Status: Acute Plan Pt is a 29-year-old female with a PMH significant for?asthma, hepatitis-C currently undergoing treatment, PTSD, GERD, and schizoaffective bipolar type who presents to the ED from [facility] after fall at the facility with head strike. Pt is admitted to the hospital under observation for lethargy and hypoxia likely secondary to polypharmacy. Somnolence, hypoxia Pt noted to be somnolent first 4-5 hours of hospital stay, at times obtunded and unable to arouse even with painful stimuli She's back her baseline mentation Currently awake, alert, and oriented x4 Imaging of chest showing possible mild pulmonary edema; no focal consolidations or concern for pneumonia Likely secondary to polypharmacy; pt on many sedative medications (Haldol, valproic acid, methadone) and recent medications at facility No indication at this time for antibiotics Hold sedative medication at this time and get Psych to review meds Wean off O2 Fall at facility Reports slipped on water Polypharmacy likely contributory Medication adjustment at [facility] No joint pain of any kind Hyperammonemia, ammonia high today, she takes Lactulose and concern of Depakote as potential cause, LFTs are within normal, continue lacutulose and repeat level tomorrow Asthma, moderate persistent Not in acute exacerbation Continue home inhalers; LoganoNebs p.r.n. Mood disorder Sedating medications will be held at this time due to somnolence Full Code DVT Prophylaxis: Lovenox Quality Stroke Does the patient have a stroke diagnosis?: No VTE Prior VTE?: No VTE Risk Level:: Medical - moderate - high VTE Device Contraindication: Treatment Not Indicated VTE Drug Contraindication: N/A - Med Ordered
[2024-12-20] MEDS: methADONE HCl 20 MG/2 ML ORAL.CONC 140 MG PO (09:44)
[2024-12-20] MEDS: 0.9 % Sodium Chloride Flush 3 ML SYRINGE IVFLUSH ×4 (09:45→21:16)
--- NOTE | 2024-12-20 10:46 | MHC.CM.PN ---
SAMSON 12/20/24 ESDRAS FROM [facility] SECTION 21 DX S/P FALL HEAD STRIKE+ HYPOXIA PT LIVES BY HERSELF IN THE [place] SHE IS INDEPENDENT WITH ALL FUNCTIONAL MOBILITY A NEW HCP HAS BEEN DOCUMENTED. A COPY HAS BEEN PLACED ON THE CHART METHADONE [address] METHADONE CLINIC CARE TEAM CONSULT ORDERED DP RETURN TO [facility] VIA BLS PENDING CARETEAM CONSULT
[2024-12-20] MEDS: Fluticasone/Vilanterol 100/25 BLST.W.DEV 1 PUFF INHALE (11:41)
[2024-12-20] MEDS: Nystatin Oral Susp 500,000 UNIT/5 ML ORAL.SUSP 500000 UNIT BUCCAL ×3 (13:09→21:14)
--- NOTE | 2024-12-20 18:24 | PM.PSYCN ---
History of Present Illness Date of Service: 12/20/24 Chief Complaint: patient over dose on psych medication Reason for Consult: Poly pharmacy Requesting physician: Carrington Patiño Discussed with referring provider: Yes Sources of Information: patient interviewed and chart reviewed Additional Sources of Information: Attending psychiatric mental health nurse practitioner at [facility] Ozzy Schmidt at 04:13 [phone] HPI Narrative: Patient seen in her room 386 at 1440. Collateral done with attending psychiatric mental health nurse practitioner at [facility]. Discussed with medical team Pt is a 29-year-old female with a PMH significant for?asthma, hepatitis-C currently undergoing treatment, PTSD, GERD, and schizoaffective bipolar type who presents to the ED from [facility] after fall at the facility with head strike. Pt is admitted to the hospital under observation for lethargy and hypoxia likely secondary to polypharmacy. Past Psychiatric History: Carrying psychiatric diagnosis of schizoaffective bipolar type, PTSD, and polysubstance use disorders. Was at [facility] in [place], came to [facility] with suicidal thoughts, and depressed Medical Evaluation Reviewed: Yes Personal & Social History: She is single, homeless. Do not know where she is going to be after discharge from [facility]. Review of Systems Review of Systems Per medical team PMFSH Social History: Single, homeless Substance History: Reports using crack cocaine alcohol and marijuana, she also methadone 140 mg a day for MAT Diagnostics Vital Signs (24Hr): Vital Signs - 24 hr 12/19/24 18:46 12/19/24 20:00 12/20/24 00:00 Temperature 97.1 F Pulse Rate 78 89 Respiratory Rate 18 20 18 Blood Pressure 107/76 112/64 Pulse Oximetry 98 97 Oxygen Delivery Method Nasal Cannula Nasal Cannula Oxygen Flow Rate 2 2 12/20/24 05:18 12/20/24 09:35 12/20/24 11:44 Temperature 97.4 F 96.9 F Pulse Rate 66 84 87 Respiratory Rate 18 16 18 Blood Pressure 99/64 92/67 Pulse Oximetry 94 96 Oxygen Delivery Method Nasal Cannula Room Air Oxygen Flow Rate 2 12/20/24 13:09 12/20/24 15:58 Temperature 96.6 F L Pulse Rate 73 Respiratory Rate 16 Blood Pressure 93/50 L 91/53 L Pulse Oximetry 96 Oxygen Delivery Method Nasal Cannula Oxygen Flow Rate 1 BMI result Body Mass Index 37.7 Labs 12/19/24 13:27 12/20/24 03:41 Labs: Laboratory Results - last 48 hr 12/19/24 12/19/24 12/20/24 13:27 18:49 03:41 WBC 4.9 RBC 3.73 L Hgb 11.1 L Hct 33.5 L MCV 89.8 MCH 29.8 MCHC 33.1 RDW 15.7 Plt Count 98 L MPV 10.4 Immature Gran % (Auto) 0.2 Neut % (Auto) 45.2 Lymph % (Auto) 46.2 H [place] % (Auto) 8.2 Eos % (Auto) 0.0 Baso % (Auto) 0.2 Lymph # (Auto) 2.2 [place] # (Auto) 0.4 Eos # (Auto) 0.0 Baso # (Auto) 0.0 Abs Immat Gran (auto) 0.01 Absolute Neuts (auto) 2.2 Absolute Nucleated RBC 0.000 Nucleated RBC % (auto) 0.0 Smear Tech's Comments VERIFIED Sodium 139 138 Potassium 4.4 4.1 Chloride 104 104 Carbon Dioxide 27 25 Anion Gap 12 13 BUN 23 H 21 H Creatinine 1.00 0.88 Estim Creat Clear Calc 94.0 106.8 Estimated GFR > 60 > 60 Random Glucose 107 67 Calcium 8.9 8.5 Total Bilirubin 0.2 0.3 Direct Bilirubin < 0.2 AST 40 H 31 ALT 19 15 Alkaline Phosphatase 87 78 Ammonia 75 H Total Protein 7.3 6.5 Albumin 4.1 3.5 Beta HCG, Quant < 2 Urine Opiates Screen Not Detected Ur Buprenorphine Scrn Not Detected Ur Oxycodone Screen Not Detected Urine Methadone Screen Positive H Urine Fentanyl Screen Not Detected Ur Barbiturates Screen Not Detected Ur Phencyclidine Scrn Not Detected Ur Amphetamines Screen Not Detected U Benzodiazepines Scrn Not Detected Urine Cocaine Screen Not Detected U Marijuana (THC) Screen Not Detected 12/20/24 08:43 WBC RBC Hgb Hct MCV MCH MCHC RDW Plt Count MPV Immature Gran % (Auto) Neut % (Auto) Lymph % (Auto) [place] % (Auto) Eos % (Auto) Baso % (Auto) Lymph # (Auto) [place] # (Auto) Eos # (Auto) Baso # (Auto) Abs Immat Gran (auto) Absolute Neuts (auto) Absolute Nucleated RBC Nucleated RBC % (auto) Smear Tech's Comments Sodium Potassium Chloride Carbon Dioxide Anion Gap BUN Creatinine Estim Creat Clear Calc Estimated GFR Random Glucose Calcium Total Bilirubin Direct Bilirubin AST ALT Alkaline Phosphatase Ammonia 98 H Total Protein Albumin Beta HCG, Quant Urine Opiates Screen Ur Buprenorphine Scrn Ur Oxycodone Screen Urine Methadone Screen Urine Fentanyl Screen Ur Barbiturates Screen Ur Phencyclidine Scrn Ur Amphetamines Screen U Benzodiazepines Scrn Urine Cocaine Screen U Marijuana (THC) Screen Imaging Radiology Impressions: ITS Impressions Knee X-Ray 12/19/24 12:47 IMPRESSION: Patella bear. This is associated with patellofemoral tracking and patellar tendon-lateral femoral condyle friction syndrome. Electronically signed by: Mando Jackson MD 12/19/2024 02:02 PM EDT RP Abdomen/Pelvis CT 12/19/24 14:28 IMPRESSION: 3 cm umbilical hernia contains mixed density adipose tissue raising question that it is symptomatic. There is also a left supraumbilical hernia containing adipose tissue without fat stranding. 3x7 mm right renal calcification, possibly a stone. Fatty liver IUD. Sacral neurostimulator. Fleischner guidelines were followed. Electronically signed by: Mando Jackson MD 12/19/2024 04:28 PM EDT RP Chest CT 12/19/24 14:28 IMPRESSION: Suspected mild pulmonary vascular congestion. Electronically signed by: Mando Jackson MD 12/19/2024 04:18 PM EDT RP Head CT 12/19/24 14:28 IMPRESSION: No acute intracranial abnormality. Electronically signed by: Mando Jackson MD 12/19/2024 04:30 PM EDT RP Mental Status Exam Mental Status Exam Patient Appearance: Fatigued, Disheveled and Unkempt Patient Orientation: Person, Place, Time and Situation Level of Consciousness: Awake, Restless, Alert, Follows Commands and Lethargic Patient Behavior: Restless, Anxious and Fatigued Mood Description: Depressed, Flat and Nervous Affect Description: Depressed and Flat Ability to Follow Directions: Fair Speech Pattern: Slurred Memory Description: Intact and Episodic Impaired Hallucinations: None Delusions: Not Present Thought Process: Intact and Slowed Thinking Thought Content: positive for Intact, positive for [place] and positive for Goal Oriented Depressive Symptoms: Sleeping More Than Usual Judgement: Poor Medications Medications Current Medications Acetaminophen (Acetaminophen 325 Mg Tablet) 650 mg PO Q6H PRN PRN Reason: Pain, Mild 1-3,fever,headache Last Admin: 12/20/24 16:42 Dose: 650 mg Albuterol Sulfate (Albuterol Sulfate 90 Mcg 8 Gm Inhaler) 2 puff INHALE Q4H PRN PRN Reason: Shortness of Breath Albuterol/Ipratropium (Albuterol/Iprat 2.5/0.5mg 3 Ml Ampul.Neb) 3 ml INHALE RQ4H WHILE AWAKE PRN PRN Reason: Shortness of Breath/Wheezing Benzocaine (Throat Lozenge, Medicated Lozenge) 1 lozenge MUCOUS MEM Q2H PRN PRN Reason: Sore Throat Benztropine Mesylate (Benztropine Mesylate 1 Mg Tablet) 1 mg PO BID [facility] Last Admin: 12/20/24 09:43 Dose: 1 mg Calcium Carbonate (Calcium Carbonate 750 Mg Tab.Chew) 750 mg PO Q4H PRN PRN Reason: Heartburn Calcium Carbonate (Calcium Carbonate 750 Mg Tab.Chew) 750 mg PO Q4H PRN PRN Reason: Heartburn Clonidine HCl (Clonidine Hcl 0.1 Mg Tablet) 0.1 mg PO TID PRN; Protocol PRN Reason: Anxiety Last Admin: 12/20/24 13:09 Dose: 0.1 mg Dicyclomine HCl (Dicyclomine Hcl 10 Mg Capsule) 10 mg PO TIDAC [facility] Last Admin: 12/20/24 16:42 Dose: 10 mg Docusate Sodium (Docusate Sodium 100 Mg Capsule) 100 mg PO BID PRN PRN Reason: Constipation Enoxaparin Sodium (Enoxaparin Sodium 40 Mg/0.4 Ml Syringe) 40 mg SUBCUT Q24H [facility] Last Admin: 12/19/24 19:25 Dose: Not Given Fluticasone Propionate (Fluticasone Propionate Nasal 16 Gm [place]) 1 spray NOSTRIL-B DAILY [facility] Last Admin: 12/20/24 11:52 Dose: Not Given Fluticasone/Vilanterol (Fluticasone/Vilanterol 100/25 Blst.W.Dev) 1 puff INHALE RDAILY [facility] Last Admin: 12/20/24 11:41 Dose: 1 puff Gabapentin (Gabapentin 300 Mg Capsule) 600 mg PO TID [facility] Guaifenesin (Guaifenesin La 600 Mg Tab.Er.12h) 1,200 mg PO Q12H PRN PRN Reason: Cough Haloperidol (Haloperidol 5 Mg Tablet) 5 mg PO BEDTIME [facility] Hydroxyzine HCl (Hydroxyzine Hcl 50 Mg Tablet) 50 mg PO Q4H PRN PRN Reason: Anxiety Last Admin: 12/20/24 16:42 Dose: 50 mg Lactulose (Lactulose 20 Gm/30 Ml Solution) 30 gm PO TID [facility] Loperamide HCl (Loperamide Hcl 2 Mg Capsule) 2 mg PO Q6H PRN PRN Reason: Loose Stool Magnesium Hydroxide (Milk Of Magnesia 30 Ml Oral.Susp) 30 ml PO DAILY PRN PRN Reason: Constipation Melatonin (Melatonin 3 Mg Tablet) 6 mg PO BEDTIME PRN PRN Reason: Insomnia Last Admin: 12/19/24 23:51 Dose: 6 mg Methadone HCl (Methadone Hcl 20 Mg/2 Ml Oral.Conc) 140 mg PO DAILY [facility] Last Admin: 12/20/24 09:44 Dose: 140 mg Multivitamins/Vitamin C (Multivitamin Tablet) 1 tab PO DAILY [facility] Last Admin: 12/20/24 09:43 Dose: 1 tab Nicotine (Nicotine 21 Mg Patch.Td24) 21 mg TRANSDERMA DAILY PRN PRN Reason: Nicotine Cravings Nicotine Polacrilex (Nicotine Polacrilex 2 Mg Gum) 2 mg BUCCAL Q2H PRN PRN Reason: Nicotine Cravings Non-Formulary Medication (Sofosbuvir-Velpatasvir [Epclusa]) 1 tab PO DAILY [facility] Nystatin (Nystatin Oral Susp 500,000 Unit/5 Ml Oral.Susp) 500,000 unit BUCCAL QID [facility]; Protocol Last Admin: 12/20/24 16:42 Dose: 500,000 unit Ondansetron HCl (Ondansetron Hcl 4 Mg/2 Ml Vial) 4 mg IVPUSH Q8H PRN PRN Reason: Nausea and Vomiting Ondansetron HCl (Ondansetron Odt 4 Mg Tab.Rapdis) 4 mg TRANSLINGU Q6H PRN PRN Reason: Nausea and Vomiting Senna (Sennosides 8.6 Mg Tablet) 17.2 mg PO DAILY PRN PRN Reason: Constipation Sodium Chloride (0.9 % Sodium Chloride Flush 3 Ml Syringe) 3 ml IVFLUSH QSHIFT [facility] Last Admin: 12/20/24 16:44 Dose: 3 ml Topiramate (Topiramate 25 Mg Tablet) 25 mg PO DAILY [facility] Allergies Allergies Allergy/AdvReac Type Severity Reaction Status Date / Time clindamycin Allergy Unknown Verified 12/19/24 13:17 pineapple AdvReac Unknown Verified 12/19/24 13:17 Assessment & Plan Assessment & Plan (1) Polypharmacy: Status: Acute Code(s): Z79.899 - Other roasterman (current) drug therapy (2) Hyperammonemia: Status: Acute Code(s): E72.20 - Disorder of urea cycle metabolism, unspecified (3) Hypoxia: Status: Acute Code(s): R09.02 - Hypoxemia (4) Schizoaffective disorder, bipolar type: Status: Acute Code(s): F25.0 - Schizoaffective disorder, bipolar type Plan HIPI: Pt is a 29-year-old female with a PMH significant for?asthma, hepatitis-C currently undergoing treatment, PTSD, GERD, and schizoaffective bipolar type who presents to the ED from [facility] after fall at the facility with head strike. Pt is admitted to the hospital under observation for lethargy and hypoxia likely secondary to polypharmacy I see this patient at 14 40 in her room 386 with the presence of the sitter. I review medication with the patient. She confirms she has schizophrenic affective bipolar type and PTSD. On methadone maintenance 140 mg which she does not want to taper down. I also review medication that has been tapered down from provider at [facility]. She was not happy with medication was reduced especially from the gabapentin that she needs it for pain. Complained of the providers not talking to her prior to change her medication. I review the plan of to do some medication to avoid sedation. So review ammonia level that could be the cause of her confusion and sedation in additional to other medications. Ensure the patient that we do no harm to her but taking care of her and we have the right to reduce some of the medication that causing sedation that result in a fall at [facility]> Collateral done with the nurse practitioner at [facility] who is her attending: According to Kyra-TECHNICAL ASSOCIATE, patient came in for suicidal thoughts, she was manic episode and was very depressed. She was discharged from [facility] in [place]. Admitted to [facility] for 8 days. During the course of a days at [facility], provider has been titrate medication down due to sedation: Gabapentin was down from 800 t.i.d. to 600 t.i.d., Depakote from 2000 to 1500 in divided dose. Discontinue clonidine. Discontinue propranolol. Taper down Topamax from 100 to 50 mg. Per TECHNICAL ASSOCIATE, patient did not want to taper down on methadone. VPA level on 12/18 was 88. Ammonia level was on December 18 was 76. VPA level has not retract after dose was reduced. Patient continued to be sedated confused, result in for yesterday and was sent out to [facility] ED. She appears to be sedated, I closed during assessment, slurred speech, but alert awake x3. Anxious regarding medication change, some irritability mood when discussing about methadone and medications changes. She doing better with oxygen 1 L. poor ADLs, poor dental hygiene. Reports trouble breathing, incongruent. Do not appear to be distress. Ammonia level on the was 75, continued to rise up to 98 on November 20. Continue with lactulose as planned according to medical team (DOSE INCREASED FROM 20 MG T.I.D. TO 30 MG T.I.D.. RECHECK AMMONIA LEVEL DAILY. Topamax from 100 down to 25 mg. Can be discontinue if continued to sedated. Haldol 10, down to 5 mg at bedtime. Depakote level now is 750 b.i.d.. We will recheck level tomorrow morning on the . Continue with gabapentin 600 t.i.d.. Hold for sedation. We will discontinue Cogentin 1 mg b.i.d. which could be a cause of her confusion and lethargic. As dose is lower, do not need to be on Cogentin. No EPS. Medical team will send out the consult to substance use specialist. Suggest to low dose on methadone. Medical team to discharge patient once stable. . Total time managing care of this patient today ____ minutes. Patient educated on: diagnosis, medication risk/benefits and substance abuse Informed Consent: understands
[2024-12-20] MEDS: Lactated Ringers 500 ML 999 ML IV (20:30)
[2024-12-21 04:00] VITALS: BP 80/40; PULSE 61; RESP 16; TEMP 36.1; O2SAT 95
[2024-12-21] MEDS: Lactated Ringers 1,000 ML 100 ML IVCONT (04:14)
[2024-12-21 04:57] VITALS: BP 89/51; PULSE 58; RESP 18; O2SAT 97
[2024-12-21 05:43] VITALS: BP 110/66; PULSE 63; RESP 18
--- NOTE | 2024-12-21 06:38 | PC.NURSE ---
[place] [id number], sitter at bedside, close stand by assistance with ambulation into bathroom. Noted at 0345 with a low blood pressure reading of 80/40-61-18, bp done manually. Patient arousable, answering questions, taking fluids, offering no complaints. Hospitalist on duty alerted and IVF of LR at 100ml/hr ordered and started. BP at 0500 at 89/51, then at 0600 110/66. Patient now more awake asking for a snack, voided, BTB, had bowl of cereal with milk. Prior to this she did state to have upper abdomen discomfort that was relieved with PO Tylenol. Continue to monitor closely
[2024-12-21 07:00] LABS: Ammonia 65 umol/L (13-55)
[2024-12-21] MEDS: Nystatin Oral Susp 500,000 UNIT/5 ML ORAL.SUSP 500000 UNIT BUCCAL (07:54)
[2024-12-21] MEDS: methADONE HCl 20 MG/2 ML ORAL.CONC 140 MG PO (07:55)
[2024-12-21 07:57] VITALS: BP 92/60; PULSE 65; RESP 18; TEMP 36.3; O2SAT 96
--- NOTE | 2024-12-21 09:17 | PM.DS ---
DS: Providers Provider Date of Service: 12/21/24 Date of admission: 12/19/24 16:47 Date of discharge: 12/21/24 Primary care physician: Unknown Physician Consults: 12/20/24 09:08 Consult to Psychiatry Routine Consulting Provider: [facility] Psych Covering Reason for consultation: Patient overdose on Psych meds 12/21/24 07:36 Inpt CARE Team Crisis Consult Routine Comment: Reason for consultation: medically ready to discharge DS: Diagnosis Discharge Diagnosis (1) Polypharmacy: Status: Acute (2) Hypoxia: Status: Acute (3) Hyperammonemia: Status: Acute DS: Summary Hospital Course Hospital Course: Chief Complaint: Fall at facility Pt is a 29-year-old female with a PMH significant for?asthma, hepatitis-C currently undergoing treatment, PTSD, GERD, and schizoaffective bipolar type who presents to the ED from [facility] after fall at the facility with head strike. Pt apparently was walking when she slipped on water, falling to the floor and hitting the back of her head. Pt was noted to be somnolent and difficult to arouse in triage, constantly falling back asleep. Workup overall was significant for elevated ammonia of 75 and pt noted to be desatting into the low 80s on RA. Attempted to see pt twice where she was noted to be nearly obtunded, unable to arouse with painful stimuli for more than a slight fluttering of her eyes. Upon 3rd attempt at seen pt, found her to be awake and alert, conversant, and mentating appropriately. Pt states has been having some medication changes at the facility, including changes to her Haldol dosing regimen. Reports some chronic lower extremity pain, but nothing acute. Denies any significant SOB or difficulty breathing. No cough. Denies chest pain/pressure, palpitations. No nausea, vomiting, abdominal pain. Reports she around 1 more month In the ED pt with soft BP as low as 90/58, desatting into 80s on RA. Labs were significant for H&H 11.1/33.5, platelets 98, AST 40, and ammonia 75. No leukocytosis. No significant electrolyte abnormalities. CT of head negative. CTA of chest with suspected mild pulmonary vascular congestion. CTA of abdomen showing umbilical hernia containing mixed density adipose tissue left supraumbilical hernia, and 3 x 7 mm right renal calcification. Right knee x-ray negative for acute fracture. EKG demonstrate of hepatitis-C treatment. d normal sinus rhythm without evidence of significant ST elevations or depressions. Pt was treated in the ED with lactulose 20 g p.o. and albuterol. Pt is admitted to the hospital under observation for lethargy and hypoxia likely secondary to polypharmacy. hospital course: Pt is a 29-year-old female with a PMH significant for?asthma, hepatitis-C currently undergoing treatment, PTSD, GERD, and schizoaffective bipolar type who presents to the ED from [facility] after fall at the facility with head strike. Pt is admitted to the hospital under observation for lethargy and hypoxia likely secondary to polypharmacy. Somnolence, hypoxia Pt noted to be somnolent first 4-5 hours of hospital stay, at times obtunded and unable to arouse even with painful stimuli She's back her baseline mentation Currently awake, alert, and oriented x4 Imaging of chest showing possible mild pulmonary edema; no focal consolidations or concern for pneumonia Likely secondary to polypharmacy; pt on many sedative medications (Haldol, valproic acid, methadone) and recent medications at facility No indication at this time for antibiotics Hold sedative medication at this time and get Psych to review meds Wean off O2 Fall at facility Reports slipped on water Polypharmacy likely contributory Medication adjustment at [facility] No joint pain of any kind Hyperammonemia, ammonia high today, she takes Lactulose and concern of Depakote as potential cause, LFTs are within normal, continue lacutulose and repeat level tomorrow Asthma, moderate persistent Not in acute exacerbation Continue home inhalers; DuoNebs p.r.n. Mood disorder Sedating medications will be held at this time due to somnolence Full Code DVT Prophylaxis: Lovenox Time Attestation Discharge Coordination Time (in mins): 45 Quality: Safe Use of Opioids Does Pt have an Active Cancer Diagnosis on the Problem List?: No Quality: Stroke Does the patient have a stroke diagnosis?: No Physical Exam Vital Signs: Vital Signs: Last Vital Signs Temp 97.4 F 12/21/24 07:57 Pulse 65 12/21/24 07:57 Resp 18 12/21/24 07:57 BP 92/60 12/21/24 07:57 Pulse Ox 96 12/21/24 07:57 O2 Del Method Aerosol Mask 12/21/24 07:57 O2 Flow Rate 1 12/21/24 07:57 BMI result Body Mass Index 37.7 DS: Data Data Completed and Pending Labs on day of discharge: Laboratory Results - last 24 hr 12/21/24 06:42 Ammonia 65 H Valproic Acid < 12.5 L Discharge Plan Discharge Anticipated Discharge Date/Time: 12/21/24 09:18 Patient Disposition: Home, Self-Care Discharge Diagnosis: Hypoxia due to polypharmacy Referrals: Physician,Unknown J [Primary Care Provider, Medical] - 1 Week Discharge Medications: New haloperidol 5 mg Tablet 5 mg PO BEDTIME Qty: 30 0RF topiramate 25 mg Tablet 25 mg PO DAILY Qty: 30 0RF Continued multivitamin Tablet 1 tab PO DAILY sennosides [senna] 8.6 mg Tablet 17.2 mg PO DAILY PRN (Reason: Constipation) nystatin 100,000 unit/mL Suspension 5 ml BUCCAL QID Rx Instructions: administer 1/2 of dose in each side of the mouth, swish and spit acetaminophen 325 mg Tablet 650 mg PO Q4H PRN (Reason: Mild Pain (Scale Score 1-4)) divalproex 250 mg Tablet,Delayed Release (Dr/Ec) 750 mg PO BID loperamide 2 mg Capsule 2 mg PO Q6H PRN (Reason: Loose Stool) trazodone 50 mg Tablet 50 mg PO BEDTIME nicotine (polacrilex) 2 mg Gum 2 mg BUCCAL Q2H PRN (Reason: Nicotine Cravings) thiamine HCl (vitamin B1) 100 mg Tablet 100 mg PO DAILY hydroxyzine pamoate 50 mg Capsule 50 mg PO Q4H PRN (Reason: Anxiety) melatonin 3 mg Tablet 3 mg PO BEDTIME PRN (Reason: Insomnia) ibuprofen 400 mg Tablet 400 mg PO Q8H PRN (Reason: body ache) nicotine 21 mg/24 hr Patch 24 Hour 1 patch TRANSDERMAL DAILY PRN (Reason: Nicotine Cravings) docusate sodium 100 mg Capsule 100 mg PO BID PRN (Reason: Constipation) gabapentin 300 mg Capsule 600 mg PO TID calcium carbonate 500 mg calcium (1,250 mg) Tablet,Chewable 500 mg PO Q4H PRN (Reason: Heartburn) methadone [Methadone Intensol] 10 mg/mL Concentrate 140 mg PO DAILY albuterol sulfate 90 mcg/actuation Hfa Aerosol Inhaler 2 puff INHALATION Q4H PRN (Reason: Shortness Of Breath) ondansetron [Zofran ODT] 4 mg Tablet,Disintegrating 4 mg PO Q6H PRN (Reason: Nausea And Vomiting) fluticasone propionate [Flonase] 50 mcg/actuation [place],Suspension 1 spray INTRANASAL DAILY Rx Instructions: administer into each nostril dicyclomine 10 mg Capsule 10 mg PO TIDAC lactulose 10 gram/15 mL Solution 20 g PO TID benzocaine-menthol 6-10 mg Lozenge 1 asher MUCOUS MEMBRANE Q2H PRN (Reason: Sore Throat) fluticasone furoate-vilanterol [Breo Ellipta] 100-25 mcg/dose Blister With Device 1 inh INHALATION DAILY sofosbuvir-velpatasvir [Epclusa] 400-100 mg Tablet 1 tab PO DAILY Discontinued clonidine HCl 0.1 mg Tablet 0.1 mg PO TID PRN (Reason: Anxiety) haloperidol 10 mg Tablet 10 mg PO BEDTIME benztropine 1 mg Tablet 1 mg PO BID topiramate 100 mg Tablet 100 mg PO DAILY loratadine 10 mg Tablet 10 mg PO DAILY guaifenesin [Mucinex] 600 mg Tablet Extended Release 12hr 1,200 mg PO Q12H PRN (Reason: Cough) Diet: Advance to usual diet Activity on Discharge: As tolerated Stand Alone Forms: Patient Portal Discharge page Print Language: Mongolian Care Plan Goals: recovery from hypoxia, and somnolence Health Concerns: Hypoxia polypharmacy oversedation Plan of Treatment: take medication as directed and follow up with your care providers in week Assessment: See above
--- NOTE | 2024-12-21 09:19 | MHC.CARE ---
Pt does not meet the criteria for a higher level of care and will be referred to case management for transportation home to [place].
--- NOTE | 2024-12-21 10:13 | P.DS_ITS ---
DS: Providers Provider Date of Service: 12/21/24 Date of admission: 12/19/24 16:47 Date of discharge: 12/21/24 Primary care physician: Unknown Physician Consults: 12/20/24 09:08 Consult to Psychiatry Routine Consulting Provider: [facility] [place] Psych Covering Reason for consultation: Patient overdose on Psych meds 12/21/24 07:36 Inpt CARE Team Crisis Consult Routine Comment: Reason for consultation: medically ready to discharge DS: Diagnosis Discharge Diagnosis (1) Polypharmacy: Status: Acute (2) Hypoxia: Status: Acute (3) Hyperammonemia: Status: Acute DS: Summary Hospital Course Hospital Course: Chief Complaint: Fall at facility Pt is a 29-year-old female with a PMH significant for?asthma, hepatitis-C currently undergoing treatment, PTSD, GERD, and schizoaffective bipolar type who presents to the ED from [facility] after fall at the facility with head strike. Pt apparently was walking when she slipped on water, falling to the floor and hitting the back of her head. Pt was noted to be somnolent and difficult to arouse in triage, constantly falling back asleep. Workup overall was significant for elevated ammonia of 75 and pt noted to be desatting into the low 80s on RA. Attempted to see pt twice where she was noted to be nearly obtunded, unable to arouse with painful stimuli for more than a slight fluttering of her eyes. Upon 3rd attempt at seen pt, found her to be awake and alert, conversant, and mentating appropriately. Pt states has been having some medication changes at the facility, including changes to her Haldol dosing regimen. Reports some chronic lower extremity pain, but nothing acute. Denies any significant SOB or difficulty breathing. No cough. Denies chest pain/pressure, palpitations. No nausea, vomiting, abdominal pain. Reports she around 1 more month In the ED pt with soft BP as low as 90/58, desatting into 80s on RA. Labs were significant for H&H 11.1/33.5, platelets 98, AST 40, and ammonia 75. No leukocytosis. No significant electrolyte abnormalities. CT of head negative. CTA of chest with suspected mild pulmonary vascular congestion. CTA of abdomen showing umbilical hernia containing mixed density adipose tissue left supraumbilical hernia, and 3 x 7 mm right renal calcification. Right knee x-ray negative for acute fracture. EKG demonstrate of hepatitis-C treatment. d normal sinus rhythm without evidence of significant ST elevations or depressions. Pt was treated in the ED with lactulose 20 g p.o. and albuterol. Pt is admitted to the hospital under observation for lethargy and hypoxia likely secondary to polypharmacy. hospital course: Pt is a 29-year-old female with a PMH significant for?asthma, hepatitis-C currently undergoing treatment, PTSD, GERD, and schizoaffective bipolar type who presents to the ED from [facility] after fall at the facility with head strike. Pt is admitted to the hospital under observation for lethargy and hypoxia likely secondary to polypharmacy. Somnolence, hypoxia, the hypoxia resolved as soon as patient was awake and alert. There was no evidence of acute pulmonary hypoxia, oxygen has been discontinued. Pt noted to be somnolent first 4-5 hours of hospital stay, at times obtunded and unable to arouse even with painful stimuli She's back her baseline mentation Currently awake, alert, and oriented x4 Imaging of chest showing possible mild pulmonary edema; no focal consolidations or concern for pneumonia, clinically with other sings of symptoms of pulmonary edema and no additional work up was warranted. Likely secondary to polypharmacy; pt on many sedative medications (Haldol, valproic acid, methadone, neurontin, clonidine, trazadone, topiramate, ). She was seen by Psych and the advised on med changes including decreasing topiramate to 25, decreaseing haldol to 5 mg from 10, discontinue clonidine and cogentin). She refused to have methadone dose adjusted and will remain on 140 mg daily, Presently she is fully awaker, alert, walking in the spicer and asking for discharge. CARE has assessed and deemed safe discharge with no indication for inpatient Psych admission. Fall at facility Reports slipped on water Polypharmacy likely contributory Medication adjustment at [facility] No joint pain of any kind. Presently lucid and no issues with gaint, and no pain in any joint, Hyperammonemia, ammonia high today, she takes Lactulose and concern of Depakote as potential cause, LFTs are within normal, continue lacutulose, dose was increased to 30 mg tid Asthma, moderate persistent Not in acute exacerbation Continue home inhalers; Anthony crane Mood disorder Sedating medications will be held at this time due to somnolence Full Code Dispo: Case management is helping with arrangement to a pen[facility]entiary to [place] where she's from Time Attestation Discharge Coordination Time (in mins): 40 Quality: Safe Use of Opioids Does Pt have an Active Cancer Diagnosis on the Problem List?: No Quality: Stroke Does the patient have a stroke diagnosis?: No Physical Exam Vital Signs: Vital Signs: Last Vital Signs Temp 97.4 F 12/21/24 07:57 Pulse 65 12/21/24 07:57 Resp 18 12/21/24 07:57 BP 92/60 12/21/24 07:57 Pulse Ox 96 12/21/24 07:57 O2 Del Method Aerosol Mask 12/21/24 07:57 O2 Flow Rate 1 12/21/24 07:57 BMI result Body Mass Index 37.7 Const: Other: General: AO X 3, no acute distress Resp: CTA bilateral CVS: S1,S2,RRR GI: +BS, NT, no distention Skin: No rash Neuro: motor grossly intact Psych: appropriate affect DS: Data Data Completed and Pending Labs on day of discharge: Laboratory Results - last 24 hr 12/21/24 06:42 Ammonia 65 H Valproic Acid < 12.5 L Discharge Plan Discharge Anticipated Discharge Date/Time: 12/21/24 09:18 Patient Disposition: Home, Self-Care Discharge Diagnosis: Hypoxia due to polypharmacy Referrals: Physician,Unknown J [Primary Care Provider, Medical] - 1 Week Discharge Medications: New haloperidol 5 mg Tablet 5 mg PO BEDTIME Qty: 30 0RF topiramate 25 mg Tablet 25 mg PO DAILY Qty: 30 0RF Continued multivitamin Tablet 1 tab PO DAILY sennosides [senna] 8.6 mg Tablet 17.2 mg PO DAILY PRN (Reason: Constipation) nystatin 100,000 unit/mL Suspension 5 ml BUCCAL QID Rx Instructions: administer 1/2 of dose in each side of the mouth, swish and spit acetaminophen 325 mg Tablet 650 mg PO Q4H PRN (Reason: Mild Pain (Scale Score 1-4)) divalproex 250 mg Tablet,Delayed Release (Dr/Ec) 750 mg PO BID loperamide 2 mg Capsule 2 mg PO Q6H PRN (Reason: Loose Stool) trazodone 50 mg Tablet 50 mg PO BEDTIME nicotine (polacrilex) 2 mg Gum 2 mg BUCCAL Q2H PRN (Reason: Nicotine Cravings) thiamine HCl (vitamin B1) 100 mg Tablet 100 mg PO DAILY hydroxyzine pamoate 50 mg Capsule 50 mg PO Q4H PRN (Reason: Anxiety) melatonin 3 mg Tablet 3 mg PO BEDTIME PRN (Reason: Insomnia) ibuprofen 400 mg Tablet 400 mg PO Q8H PRN (Reason: body ache) nicotine 21 mg/24 hr Patch 24 Hour 1 patch TRANSDERMAL DAILY PRN (Reason: Nicotine Cravings) docusate sodium 100 mg Capsule 100 mg PO BID PRN (Reason: Constipation) gabapentin 300 mg Capsule 600 mg PO TID calcium carbonate 500 mg calcium (1,250 mg) Tablet,Chewable 500 mg PO Q4H PRN (Reason: Heartburn) methadone [Methadone Intensol] 10 mg/mL Concentrate 140 mg PO DAILY albuterol sulfate 90 mcg/actuation Hfa Aerosol Inhaler 2 puff INHALATION Q4H PRN (Reason: Shortness Of Breath) ondansetron 4 mg Tablet,Disintegrating 4 mg PO Q6H PRN (Reason: Nausea And Vomiting) fluticasone propionate 50 mcg/actuation [place],Suspension 1 spray INTRANASAL DAILY Rx Instructions: administer into each nostril dicyclomine 10 mg Capsule 10 mg PO TIDAC lactulose 10 gram/15 mL Solution 20 g PO TID benzocaine-menthol 6-10 mg Lozenge 1 asher MUCOUS MEMBRANE Q2H PRN (Reason: Sore Throat) fluticasone furoate-vilanterol [Breo Ellipta] 100-25 mcg/dose Blister With Device 1 inh INHALATION DAILY sofosbuvir-velpatasvir [Epclusa] 400-100 mg Tablet 1 tab PO DAILY Discontinued clonidine HCl 0.1 mg Tablet 0.1 mg PO TID PRN (Reason: Anxiety) haloperidol 10 mg Tablet 10 mg PO BEDTIME benztropine 1 mg Tablet 1 mg PO BID topiramate 100 mg Tablet 100 mg PO DAILY loratadine 10 mg Tablet 10 mg PO DAILY guaifenesin [Mucinex] 600 mg Tablet Extended Release 12hr 1,200 mg PO Q12H PRN (Reason: Cough) Discharge Orders: Discharge Order (Routine); Ordered 12/21/24 Ordered By: Carrington Patiño Diet: Advance to usual diet Activity on Discharge: As tolerated Stand Alone Forms: Patient Portal Discharge page Print Language: Israeli Care Plan Goals: recovery from hypoxia, and somnolence Health Concerns: Hypoxia polypharmacy oversedation Plan of Treatment: take medication as directed and follow up with your care providers in week Assessment: See above Discharge Date/Time: 12/21/24 13:09
--- NOTE | 2024-12-21 10:54 | MHC.CM.PN ---
Addendum entered by Savannah Ndiaye 12/21/24 13:29: PT WAS PROVIDED WITH BUS TICKETS FROM [facility] TO [place], [employer]. SHE WAS TRANSPORTED VIA [facility] TO [facility] AT 1310 HOURS SHE REPORTS A PLAN TO GO TO A RETIREMENT SHE WAS AT [facility], SHE UNDERSTANDS THAT CM WAS UNABLE TO REACH THEM, BUT STATES SHE KNOWS WHERE SHE IS GOING AND THAT THEY WILL LET HER STAY. Original Note: PT AWARE SHE HAS BEEN CLEARED BY THE CARE TEAM, YET INITIALLY STATES SHE WANTS TO GO TO RESPITE IN [place] CM ATTEMPTED TO CONTACT THE RESPITE IDENTIFIED BY THE PT MULTIPLE TIMES AND LEFT VMS REQUESTING RETURN CALLS THERE HAS BEEN NO RESPONSE AND PER CARE TEAM, THEY BELIEVE THERE IS A WAIT LIST CM INFORMED PT ATTEMPTS TO REACH A FEMALE RETIREMENT IN [place] HAVE ALSO BEEN UNSUCCESSFUL AND OFFERED TO EXPAND SEARCH PT STATES, SEND ME BACK TO [place] CM ATTEMPTED TO REVIEW THE PLAN WITH HER AGAIN, HOWEVER SHE IS TOO SEDATED TO DO SO CM DID INFORM HER A BUS TICKET WOULD BE PURCHASED FOR HER TO GET FROM [facility] TO [place] A LYFT WILL BE BOOKED FOR 1315 TRANSPORT TO [facility] BUS TERMINAL
== END 2024-12-21 13:09 | disposition home or self-care (01) ==
LOC: HO.ED 15:29 → HO.EDOVER 17:53 → HO.S3 12-20 07:39
PROVIDERS: Nurse Practitioner Psychiatric/Mental Health; Admitting Provider Student in an Organized Health Care Education/Training Program; Emergency Provider Emergency Medicine; PCP Licensed Practical Nurse; Visit Provider Internal Medicine
DX: R09.02 Hypoxemia (principal); F25.0 Schizoaffective disorder, bipolar type; R07.9 Chest pain, unspecified; E72.20 Disorder of urea cycle metabolism, unspecified; S89.91XA Unspecified injury of right lower leg, initial encounter; W01.0XXA Fall on same level from slipping, tripping and stumbling without subsequent striking against object, initial encounter; Y93.9 Activity, unspecified; Y92.89 Other specified places as the place of occurrence of the external cause; Y99.9 Unspecified external cause status; R10.31 Right lower quadrant pain; R41.82 Altered mental status, unspecified; F39 Unspecified mood [affective] disorder; J45.40 Moderate persistent asthma, uncomplicated; K76.0 Fatty (change of) liver, not elsewhere classified; F43.10 Post-traumatic stress disorder, unspecified; Z79.899 Other long term (current) drug therapy
CPT/HCPCS: 36415; 70450; 71260; 73560; 74177; 80053; 80164; 80307; 82140; 82248; 84702; 85025; 93005; 94640; 96360; 96361; 99221; 99285; J7120; Q9967; S9485

== ENCOUNTER → 2024-12-19 13:19 | Outpatient (BNV) | payer OTHER, SELFPAY | PROVIDERS: Emergency Provider Emergency Medicine; Visit Provider Internal Medicine Cardiovascular Disease | DX: R94.31 Abnormal electrocardiogram [ECG] [EKG] (principal); W19.XXXA Unspecified fall, initial encounter | CPT/HCPCS: 93010 ==

== ENCOUNTER → 2024-12-19 13:35 | Outpatient (BNV) | payer OTHER, SELFPAY | PROVIDERS: Emergency Provider Emergency Medicine; Visit Provider Radiology Diagnostic Radiology | DX: K42.9 Umbilical hernia without obstruction or gangrene (principal); N28.89 Other specified disorders of kidney and ureter; K76.0 Fatty (change of) liver, not elsewhere classified; R09.02 Hypoxemia; S09.90XA Unspecified injury of head, initial encounter; R41.82 Altered mental status, unspecified; S80.911A Unspecified superficial injury of right knee, initial encounter | CPT/HCPCS: 70450; 71260; 73560; 74177 ==

== ENCOUNTER → 2024-12-19 16:47 | Outpatient (BNV) | payer OTHER, SELFPAY | PROVIDERS: Admitting Provider Student in an Organized Health Care Education/Training Program; Emergency Provider Emergency Medicine; Visit Provider Nurse Practitioner Psychiatric/Mental Health | DX: F25.0 Schizoaffective disorder, bipolar type (principal); Z79.899 Other long term (current) drug therapy; E72.20 Disorder of urea cycle metabolism, unspecified; R09.02 Hypoxemia | CPT/HCPCS: 99232 ==

== ENCOUNTER → 2024-12-19 16:47 | Outpatient (BNV) | payer OTHER, SELFPAY | PROVIDERS: Admitting Provider Student in an Organized Health Care Education/Training Program; Emergency Provider Emergency Medicine; Visit Provider Student in an Organized Health Care Education/Training Program | DX: R09.02 Hypoxemia (principal); E72.20 Disorder of urea cycle metabolism, unspecified; Z79.899 Other long term (current) drug therapy | CPT/HCPCS: 99223; 99232; 99239 ==